=== PATIENT | male | born 1985 | race Caucasian/White ===

== ENCOUNTER 2018-05-24 11:18 | Emergency (ER) | payer OTHER ==
[~2018-05-24] VITALS: Ht 185.4 cm; Wt 63.0 kg
[2018-05-24] MEDS ORDERED: ondansetron/PF 4mg/2ml inj IV ONE (11:50)
[2018-05-24] MEDS ORDERED: ketorolac trometh. 30mg/ml inj. IV ONE (11:50)
[2018-05-24] MEDS ORDERED: morphine 4 MG/ML inj SYRINge IV ONE (11:50)
[2018-05-24] MEDS ORDERED: LIDOcaine 1% 30ml preserv. free vial IJ ONE (12:05)
[2018-05-24] MEDS ORDERED: morphine 10mg/ml inj. IV ONE (12:05)
[2018-05-24] MEDS ORDERED: LORazepam 2 mg/ml vial IV ONE (12:05)
--- NOTE | 2018-05-24 12:16 | NUR ---
Dr Quiñones in room to attempt shoulder reduction without sedation.
[2018-05-24 12:53] VITALS: BP 154/89
== END 2018-05-24 13:09 | disposition home or self-care (01) ==
LOC: ER 11:19
DX: S43.015A Anterior dislocation of left humerus, initial encounter (principal); S43.035A Inferior dislocation of left humerus, initial encounter; V29.9XXA Motorcycle rider (driver) (passenger) injured in unspecified traffic accident, initial encounter; Y93.89 Activity, other specified; Y92.488 Other paved roadways as the place of occurrence of the external cause; Y99.8 Other external cause status
CPT/HCPCS: 23650; 71045; 73020; 73030; 96374; 96375; 99284; J1885; J2060; J2270; J2405; J3490